=== PATIENT | male | born 1955 | race Two or more races ===

== ENCOUNTER 2017-01-18 20:56 | Emergency (ER) | payer OTHER ==
[~2017-01-18] VITALS: Ht 165.1 cm; Wt 68.0 kg
[2017-01-18 21:29] LABS: PH, VENOUS 7.358 pH (7.320-7.420)
[2017-01-18] MEDS ORDERED: DEXTROSE 50%, 50ML SYRINGE IVPush ONE ×2 (21:30→22:00)
[2017-01-18 21:40] LABS: ASPARTATE AMINO TRANSFERASE 23 U/L (15-37); BLOOD UREA NITROGEN 19 mg/dL (7-18)
[2017-01-18] MEDS ORDERED: DEXTROSE 50%, 50ML VIAL ONE (21:57)
[2017-01-18] MEDS ORDERED: CLOP75TA22 PO (23:32)
[2017-01-18] MEDS ORDERED: INSU100C SQ-INSULIN (23:32)
[2017-01-18] MEDS ORDERED: INSU100V8 SQ (23:32)
[2017-01-18 23:40] VITALS: BP 123/64
== END 2017-01-18 23:59 | disposition home or self-care (01) ==
LOC: ED 21:20
DX: E10.641 Type 1 diabetes mellitus with hypoglycemia with coma (principal); Z79.4 Long term (current) use of insulin
CPT/HCPCS: 36415; 80053; 82010; 82803; 82962; 85025; 96374; 96376